=== PATIENT | female | born 1980 | race Caucasian/White ===

== ENCOUNTER → 2019-12-30 09:52 | Outpatient (CLI) | payer OTHER, SELFPAY ==
--- NOTE | ~2019-12-30 | US_ITS ---
EXAMINATION: US OB limited DATE: 12/30/2019 10:15 INDICATION: Subchorionic hematoma TECHNIQUE: Real-time ultrasound of the pelvis was performed. The interpreting radiologist was not pre sent for the study. COMPARISON: None. FINDINGS: There is a single living fetus in vertex presentation. The placenta is anterior and 3.9 cm from the internal cervical os. There is a 1.2 x 0.6 x 1.3 cm hypoechoic area of the anterior/superior aspect of the placenta. cardiac activity and movement are noted. heart rate is 149 beats per minute (bpm). The amniotic fluid index is subjectively normal. IMPRESSION: 1. Single living fetus in vertex presentation. 2. Small hypoechoic area of the placenta of unclear significance, possibly venous house versus small s ubchorionic hematoma Reviewed, dictated and finalized at location A. IMPRESSION: 1. Single living fetus in vertex presentation. 2. Small hypoechoic area of the placenta of unclear significance, possibly veno us house versus small subchorionic hematoma
== END ==
PROVIDERS: Visit Provider Obstetrics & Gynecology Gynecology
DX: O36.8920 Maternal care for other specified fetal problems, second trimester, not applicable or unspecified (principal); Z3A.00 Weeks of gestation of pregnancy not specified
CPT/HCPCS: 76815

== ENCOUNTER → 2020-01-13 09:53 | Outpatient (CLI) | payer OTHER, SELFPAY ==
--- NOTE | ~2020-01-13 | US_ITS ---
EXAMINATION: US OB /maternal detail DATE: 01/13/2020 10:50 INDICATION: anatomic survey. TECHNIQUE: Real-time ultrasound of the pelvis was performed. COMPARISON: Ultrasound 12/30/2019 FINDINGS: There is a single living fetus in vertex presentation. The placenta is anterior, 4.5 cm from the cer vix. heart rate is 154 beats per minute (bpm). The amniotic fluid index is 13.0 cm, which is no rmal. The following biometric data were obtained: Biparietal diameter (BPD): 4.4 cm; head circumference (HC): 15.9 cm; abdominal circumference (AC): 13 .2 cm; femur length (FL): 2.8 cm. These measurements are concordant. Estimated weight is 251 g +/- 38 g, which correlates with 21st percentile when 06/09/20 is used as estimated date of delivery. As single measurements, these parameters are each equal to the following estimated gestational ages w ith ranges of +/- 2 standard deviations: BPD: 19 weeks 3 days (17 weeks 4 days - 21 weeks 1 days). HC: 18 weeks 5 days (17 weeks 2 days - 20 weeks 1 days). AC: 18 weeks 5 days (16 weeks 5 days - 20 weeks 5 days). FL: 18 weeks 4 days (16 weeks 5 days - 20 weeks 2 days). estimated gestational age based solely on measurements from this exam is 18 weeks 6 days +/- 1 weeks 2 days. IMPRESSION: 1. Single living fetus in vertex presentation. 2. Estimated weight is 251 g +/- 38 g, which correlates with 21st percentile when 06/09/20 is u sed as estimated date of delivery. 3. Normal anatomic survey. Reviewed, dictated and finalized at location A. IMPRESSION: 1. Single living fetus in vertex presentation. 2. Estimated weight is 251 g +/- 38 g, which correlates with 21st percen tile when 06/09/20 is used as estimated date of delivery. 3. Normal anatomic survey.
== END ==
PROVIDERS: Visit Provider Obstetrics & Gynecology Gynecology
DX: O36.8920 Maternal care for other specified fetal problems, second trimester, not applicable or unspecified (principal); Z3A.18 18 weeks gestation of pregnancy
CPT/HCPCS: 76805

== ENCOUNTER 2020-05-28 13:23 | Observation (INO) | payer OTHER, SELFPAY ==
--- NOTE | ~2020-05-28 | US_ITS ---
EXAMINATION: US OB limited w BPP DATE: 05/28/2020 15:42 INDICATION: Biophysical profile and placenta check. Third trimester. TECHNIQUE: Real-time pelvic ultrasound was performed. COMPARISON: Ultrasound 01/13/2020, 12/30/2019 FINDINGS: There is a single living fetus in vertex presentation. The placenta is anterior. heart rate is 125 beats per minute (bpm). Biophysical profile performed by the technologist: breathing (30 sec sustained breathing in 30 minutes): 2 out of 2 movement (3 gross body movements in 30 minutes): 2 out of 2 tone (one episode of cncdtvm-ylirmmako-dafhjlc limb movement): 2 out of 2 Amniotic fluid pocket (2 cm): 2 out of 2 Total score: 8 out of 8 IMPRESSION: 1. Single living fetus in vertex presentation. 2. Biophysical profile 8 out of 8. Reviewed, dictated and finalized at location B.
--- NOTE | 2020-05-28 13:23 | OBADM ---
This patient, Lidia Hurley, admitted to the OB room OB Post 113 for observation. Patient/family oriented to hospital policies and general routines including ID bracelet, bed and alarms, visiting hours, pain management, procedures, bathroom and other care routines, personal items, smoking policy, room service/diet, and visiting hours. Patient/Family are encouraged to report perceived risks to care and to ask questions if they do not understand what they are told or what they should do.
[2020-05-28 13:42] VITALS: BP 114/69; PULSE 79
[2020-05-28 14:00] VITALS: BMI 29.5
[2020-05-28 14:01] VITALS: BP 101/61; PULSE 69
[2020-05-28 14:31] VITALS: BP 100/62; PULSE 67
[2020-05-28 14:45] VITALS: TEMP 36.6
[2020-05-28 15:00] VITALS: BP 101/61; PULSE 67
--- NOTE | 2020-05-28 15:00 | PCDIET ---
pt off unit for ultrasound.
--- NOTE | 2020-05-30 07:06 | PM.OBTRLD ---
OB - Triage/Final Diagnosis Final Diagnosis (1) Fall: Code(s): W19.XXXA - Unspecified fall, initial encounter Status: Acute
== END 2020-05-28 16:12 | disposition home or self-care (01) ==
PROVIDERS: Admitting Provider Obstetrics & Gynecology Gynecology; PCP Family Medicine; Visit Provider Obstetrics & Gynecology Gynecology
DX: O99.89 Other specified diseases and conditions complicating pregnancy, childbirth and the puerperium (principal); W19.XXXA Unspecified fall, initial encounter; Z3A.38 38 weeks gestation of pregnancy
CPT/HCPCS: 59025; 76815; 76819; G0378; G0379

== ENCOUNTER 2020-06-13 05:03 | Inpatient (IN) | payer OTHER, SELFPAY ==
[2020-06-13] VITALS (124 sets, daily range): BP systolic 88–141; BP diastolic 44–111; PULSE 42–103; RESP 16; TEMP 36.5–37.7; O2SAT 97–100; BMI 24.5
--- NOTE | 2020-06-13 05:28 | LDADM ---
This patient, Lidia Hurley, was admitted to Labor/Delivery/Recovery 104 on 06/13/20 at 05:03. Plans for labor, pain management and were discussed with patient. Patient/family oriented to hospital policies and general routines including ID bracelet, bed and alarms, visiting hours, pain management, procedures, bathroom and other care routines, personal items, smoking policy, room service/diet and guest tray routines, infant security routines, and visiting hours. Patient/Family are encouraged to report perceived risks to care and to ask questions if they do not understand what they are told or what they should do. See OBIX for further documentation.
[2020-06-13] MEDS: LACTATED RINGERS 1,000 ML 125 ML IV CONT ×3 (05:34→11:19)
[2020-06-13] MEDS: OXYTOCIN 30 UNITS/NS 500 ML 30 UNITS/500 ML BAG IV CONT (05:35)
[2020-06-13 05:42] LABS: Basophils Percent Auto 0.3 % (0.2-1.2); Eosinophils Absolute Auto 0.1 K/mm3 (0-0.3); Eosinophils Percent Auto 1.1 % (0-4.4); Hematocrit 38.6 % (37.0-47.0); Hemoglobin 13.2 g/dL (12.0-15.0); Immature Granulocyte Absolute 0.16 K/mm3 (0.00-0.031); Immature Granulocyte Percent A 1.3 % (0-0.5); Mean Corpuscular HGB Conc 34.2 g/dl (32-36); Mean Corpuscular Hemoglobin 31.4 pg (26-34); Mean Corpuscular Volume 91.9 fl (80-100); Mean Platelet Volume 9.2 fl (7.4-10.4); Monocytes Absolute Auto 0.8 K/mm3 (0.1-0.6); Monocytes Percent Auto 6.8 % (2.6-8.5); Neutrophils Absolute Auto 8.8 K/mm3 (1.3-6.7); Neutrophils Percent Auto 72.5 % (45.5-73.1); Platelet Count Result 279 k/mm3 (150-375); White Blood Count 12.2 K/mm3 (4.5-10.0)
--- NOTE | 2020-06-13 07:36 | WPDANESEPP ---
Anes - Eval Pre Procedure Procedure: labor epidural Date/Time: 06/13/20 07:36 Surgeon: jaclyn Pre Op Diagnosis: IOL Patient Data Age: 39 Gender: F Height: 1.63 m Weight: 65 kg Last Vital Signs Pulse 74 06/13/20 07:31 BP 106/62 06/13/20 07:31 Allergies Allergy/AdvReac Type Severity Reaction Status Date / Time No Known Allergies Allergy Unknown Verified 05/14/20 12:46 Home Medications Medication Instructions Recorded Confirmed Type One Daily Women's 1 tablet PO 05/14/20 History aspirin [Aspirin Low Dose] 81 mg PO DAILY 05/14/20 05/14/20 History cholecalciferol (vitamin D3) 50 mcg PO DAILY 05/14/20 05/14/20 History [Vitamin D3] omega 8-ldn-mpw-fish oil [Fish Oil] 2 cap PO DAILY 05/14/20 05/14/20 History Laboratory Tests 06/13/20 06/13/20 05:31 05:31 WBC 12.2 K/mm3 H K/mm3 (4.5-10.0) RBC 4.20 M/mm3 M/mm3 (4.2-5.4) Hgb 13.2 g/dL g/dL (12.0-15.0) Hct 38.6 % % (37.0-47.0) MCV 91.9 fl fl (80-100) MCH 31.4 pg pg (26-34) MCHC 34.2 g/dl g/dl (32-36) RDW 13.0 % % (11.5-14.5) Plt Count 279 k/mm3 k/mm3 (150-375) MPV 9.2 fl fl (7.4-10.4) Immature Gran % (Auto) 1.3 % H % (0-0.5) Neut % (Auto) 72.5 % % (45.5-73.1) Lymph % (Auto) 18.0 % L % (18.3-44.2) [place] % (Auto) 6.8 % % (2.6-8.5) Eos % (Auto) 1.1 % % (0-4.4) Baso % (Auto) 0.3 % % (0.2-1.2) Lymph # (Auto) 2.20 K/mm3 K/mm3 (0.9-3.2) [place] # (Auto) 0.8 K/mm3 H K/mm3 (0.1-0.6) Eos # (Auto) 0.1 K/mm3 K/mm3 (0-0.3) Baso # (Auto) 0.0 K/mm3 K/mm3 (0.0-0.1) Abs Immat Gran (auto) 0.16 K/mm3 H K/mm3 (0.00-0.031) Absolute Neuts (auto) 8.8 K/mm3 H K/mm3 (1.3-6.7) Absolute Nucleated RBC 0.0 K/mm3 K/mm3 (0.0-0.012) Nucleated RBC % 0.0 % % (0.0-0.2) RPR Pending Patient hx anesthesia problems: none Family hx anesthesia problems: none PMFSH Family History Family History Mother Glaucoma Father Factor VIII deficiency Chronic obstructive pulmonary disease Hypertension Dementia Social History Social History Smoking status: Never smoker Second hand tobacco smoke exposure: No Alcohol intake: current Substance use: never Spiritual care concerns: No Exam Day of Procedure 06/13/20 07:36 Patient weight: normal Heart: regular rate and rhythm Lungs: clear to auscultation Airway: Mallampati scale class II Neurological: alert and oriented
[2020-06-13] MEDS: SODIUM CHLORIDE 0.9% IV 300 ML 600 ML I-UTERINE (09:33)
[2020-06-13] MEDS: SODIUM CHLORIDE 0.9% IV 1,000 ML 150 ML I-UTERINE (10:04)
--- NOTE | 2020-06-13 13:25 | WPDOBADMIT ---
Obstetrics - Admit Note Admission Note: record reviewed. No pertinent additions to the history and/or any subsequent changes in the physical findings that are not consistent with the expected course of the were found. Additions to the history and/or subsequent changes in the physical findings follow. None.Here for MIL. cervix 250/-2 AROM with clear fluid. FHTs reactive seen at 0800.
--- NOTE | 2020-06-13 19:04 | PM.OBPRVD ---
OB - Delivery Note Procedure Delivery date: 06/13/20 Procedure: events: Labor Induction Intrapartal events: None Induction method: AROM and per pitocin protocol Delivery monitor: external FHT and internal uterine Route of delivery: Episiotomy description: Midline Laceration description: Perineal - 2nd Degree (and 2nd degree right periurethral lac) Delivery repair: vicryl (3-0 vicryl and 4-0 vicryl) Specimen: No Estimated blood loss (mL): 537 Anesthesia type: Epidural Disposition: PACU Baby Date of : 06/13/20 Weeks of gestation at delivery: 40 Infant gender: Female Weight (pounds): 6 Weight (ounces): 6 presentation: vertex Placenta delivery description: Spontaneous cord vessel description: 3 Vessels, Nuchal Cord, Tight and Around Extremity x1 score one minute: 9 score five minutes: 9
--- NOTE | 2020-06-13 19:06 | PM.OBDSVD ---
DS: Admitting Diagnosis Admitting Diagnosis Admitting Diagnosis: IOL 40 wk DS: Discharge Diagnosis Discharge Diagnosis (1) 40 weeks gestation of : Code(s): Z3A.40 - 40 weeks gestation of Status: Acute (2) (normal spontaneous vaginal delivery): Code(s): O80 - Encounter for full-term uncomplicated delivery Status: Acute (3) Encounter for sterilization: Code(s): Z30.2 - Encounter for sterilization Status: Acute OB - DS: Summary OB Procedures : Ultrasound OB Procedures Intrapartum: Spontaneous Vag Delivery OB Procedures: : P.P. tubal ligation Peripartum Data Infant Delivery Method: Natural Vaginal Laceration description: Perineal - 2nd Degree (and 2nd degree periurethral) complications: none Status at Discharge Functional status at discharge: independent ambulation Overall status at discharge: patient is progressing back to baseline Time Spent with Patient Time attestation: Total time spent providing and/or coordinating discharge services: DS: Data Data Completed and Pending Labs on day of discharge: Labs from last 24 hours 06/13/20 06/13/20 06/13/20 05:31 05:31 05:31 WBC 12.2 H RBC 4.20 Hgb 13.2 Hct 38.6 MCV 91.9 MCH 31.4 MCHC 34.2 RDW 13.0 Plt Count 279 MPV 9.2 Immature Gran % (Auto) 1.3 H Neut % (Auto) 72.5 Lymph % (Auto) 18.0 L Ross % (Auto) 6.8 Eos % (Auto) 1.1 Baso % (Auto) 0.3 Lymph # (Auto) 2.20 Ross # (Auto) 0.8 H Eos # (Auto) 0.1 Baso # (Auto) 0.0 Abs Immat Gran (auto) 0.16 H Absolute Neuts (auto) 8.8 H Absolute Nucleated RBC 0.0 Nucleated RBC % 0.0 RPR Pending Blood Type O Positive Antibody Screen Negative Discharge Plan Discharge Attending physician on discharge: Diya Valerio Discharging Clinician: Chris Conde Anticipated Discharge Date/Time: 06/15/20 19:08 Patient Disposition: Home, Self-Care Activity: may shower and pelvic rest Diet: regular Discharge Instructions: Education: Mom and Baby Guide Given to: Mother Follow-Up: Call your delivering provider's office for an appointment to be seen in: 6 Weeks Mom and baby should come to the [facility] for the follow-up appointment. Appointment Date/Time: June 17, 2020 at 10:00 am What to expect at your follow-up visit: Blood Pressure Check Physical Assessment Call [phone] if you are unable to keep your appointment time. BREAST CARE: * Wear a snug supportive bra. * For engorgement discomfort: Breast Feeding: * Apply warm moist washcloths * Express milk as needed to relieve engorgement * Wear loose clothing Bottle Feeding: * May apply ice packs * For sore nipples: * Identify correct latch-on * Apply warm moist washcloths before and after nursing * Air dry nipples after nursing * May apply Lansinoh cream to nipples EPISIOTOMY/PERINEAL CARE: * Until bleeding stops, use your mehnaz bottle after urinating * Change your pad frequently throughout the day * You may take sitz baths several times a day (fill your bathtub with warm water and soak for 20 minutes.) Do NOT bathe in the water ACTIVITY: * Rest as much as possible. * Do not exercise or lift anything heavier than your baby (such as laundry or other children.) * Avoid stairs or driving as much as possible. * Do not put anything into the vagina. No douching, tampons, or sexual activity until seen by physician. NOTIFY PHYSICIAN IF YOU HAVE ANY QUESTIONS OR IF ANY OF THE FOLLOWING SYMPTOMS OCCUR: * If your episiotomy becomes red, swollen, or more painful than what you have experienced in the hospital. * If your vaginal bleeding becomes foul smelling. * If your vaginal bleeding becomes more heavy than a period or if your bleeding changes from pink to bright red. H
[2020-06-13] MEDS: OXYTOCIN 30 UNITS/NS 500 ML 30 UNITS/500 ML BAG 125 UNITS IV CONT (19:14)
[2020-06-13] MEDS: BENZOCAINE 20% AER SPR (*SP) 56 GM CAN 1 SPRAY TOPICAL (21:08)
[2020-06-13] MEDS: WITCH HAZEL 40 PADS 1 PAD TOPICAL (21:08)
[2020-06-13] MEDS: IBUPROFEN 600 MG TABLET PO (21:42)
[2020-06-13] MEDS: ACETAMINOPHEN 325 MG TABLET 650 MG PO (21:42)
[2020-06-14] VITALS (11 sets, daily range): BP systolic 102–130; BP diastolic 53–96; PULSE 63–110; RESP 12–20; TEMP 36.7–37.6; O2SAT 96–100
[2020-06-14 04:56] LABS: Hemoglobin 10.8 g/dL (12.0-15.0)
--- NOTE | 2020-06-14 08:00 | PC.NURSE ---
Consulted with patient, Mother reports she was unable to latch without assist. Reviewed infant feeding cues, frequencies, duration of feedings, feeding elimination flow sheet, and signs of adequate intake. Demonstrated stimulation techniques to wake infant for feeding. Assisted with infant to breast. Reviewed positioning/alignment in cross cradle, holding breast in U hold and guided asymmetrical latch on. Discussed rational for each. Infant was able to latch correctly. Infant nursed eagerly, with steady draws and occasional swallowing noted. Reviewed signs of a correct latch, effective nursing and suck swallow ratio. Infant was able to maintain latch without discomfort to mother. Nipple care reviewed. Advised to stimulate while feeding to keep awake and nursing effectively for increased intake and to assist with maintaining deep latch. Instructed mother to call out for RN assistance if she is unable to latch infant for feeding or she has discomfort with nursing. Instructed feeding should be initiated three hours from start of last feeding or if feeding cues are noted before. Mother voiced understanding of information shared.
[2020-06-14 10:00] LABS: Rapid Plasma Reagin Non-Reactive (NonReactive)
--- NOTE | 2020-06-14 10:07 | WPDANLDPN2 ---
Anes-Prog Note L&D Date/Time: 06/14/20 10:07 Comfortable throughout: labor and delivery Neuraxial method: epidural Epidural/Spinal procedure site: clean & non-tender Neuro status: Neuro function grossly intact. Cardiovascular status: normal Respiratory status: normal Airway patency: baseline Mental status: baseline Post-Op hydration status: normal Vital Signs: Last Vital Signs Temp 37.6 C 06/14/20 07:45 Pulse 63 06/14/20 07:45 Resp 16 06/14/20 07:45 BP 102/59 L 06/14/20 07:45 Pulse Ox 98 06/14/20 07:45 I/O: Intake & Output 06/13/20 06/14/20 06/14/20 23:59 07:59 15:59 Intake Total 1500 Output Total 652 Balance 848 Post-procedural complaints: none Patient feedback: Patient satisfied with anesthetic care.
[2020-06-14] MEDS: LACTATED RINGERS 1,000 ML 30 ML IV CONT (11:35)
--- NOTE | 2020-06-14 12:02 | PC.NURSE ---
To OR per stretcher, IV in LFA and epidural in place. Report given to pre-op.
--- NOTE | 2020-06-14 12:15 | WPDANESEFPP ---
Anes - Eval Final PreProcedure Day of Procedure 06/14/20 12:15 Patient weight: normal Heart: regular rate and rhythm Lungs: clear to auscultation Airway: Mallampati scale class II Neurological: alert and oriented Last oral intake: >/= 8 hours ASA classification: II Emergent: no Anesthetic plan: proceed Anesthesia type and monitoring: regional epidural and standard monitoring Other findings: existing epid vs gen Informed Consent: The patient's anesthetic plan and its attendant risks and benefits were discussed with the patient/family/POA. Questions were solicited and answers provided to the satisfaction of the patient/family/POA.
--- NOTE | 2020-06-14 12:15 | PM.IMHP ---
H&P: HPI History of Present Illness Date/Time: 06/14/20 12:15 Chief complaint: IOL Narrative: Lidia Hurley is a 39 year old female now on ppd1 requesting sterilization. Patient has determined she wants no further children. She is aware this is a permanent and irreversible sterilizing procedure. Risks of infection, bleeding, injury to internal organs, and failure (with increased ectopic) were reviewed. Agrees to proceed. [facility] Past Medical History Medical History (Updated 06/14/20 @ 12:18 by Diya Valerio MD) Glaucoma Surgical History Surgical History (Updated 06/14/20 @ 12:17 by Diya Valerio MD) S/P laparoscopic cholecystectomy Family History Family History Mother Glaucoma Father Factor VIII deficiency Chronic obstructive pulmonary disease Hypertension Dementia Social History Social History Smoking status: Never smoker Second hand tobacco smoke exposure: No Alcohol intake: current Substance use: never Spiritual care concerns: No Meds Home Medications and Allergies Home Medications Medication Instructions Recorded Confirmed Type One Daily Women's 1 tablet PO DAILY 05/14/20 06/13/20 History aspirin [Aspirin Low Dose] 81 mg PO DAILY 05/14/20 05/14/20 History cholecalciferol (vitamin D3) 50 mcg PO DAILY 05/14/20 05/14/20 History [Vitamin D3] omega 4-qma-icg-fish oil [Fish Oil] 2 cap PO DAILY 05/14/20 05/14/20 History Allergies Allergy/AdvReac Type Severity Reaction Status Date / Time No Known Allergies Allergy Unknown Verified 05/14/20 12:46 Vital Signs Vital Signs - 24 hr 06/13/20 12:16 06/13/20 12:17 06/13/20 12:21 Temperature Pulse Rate 58 L 52 L Respiratory Rate Blood Pressure 95/55 L 97/51 L Pulse Oximetry 98 06/13/20 12:22 06/13/20 12:26 06/13/20 12:27 Temperature Pulse Rate 63 Respiratory Rate Blood Pressure 96/51 L Pulse Oximetry 98 99 06/13/20 12:31 06/13/20 12:32 06/13/20 12:37 Temperature Pulse Rate 67 Respiratory Rate Blood Pressure 102/51 L Pulse Oximetry 99 98 06/13/20 12:42 06/13/20 12:46 06/13/20 12:47 Temperature Pulse Rate 61 Respiratory Rate Blood Pressure 100/52 L Pulse Oximetry 99 99 06/13/20 12:52 06/13/20 12:57 06/13/20 13:01 Temperature Pulse Rate 79 Respiratory Rate Blood Pressure 106/58 L Pulse Oximetry 100 99 06/13/20 13:02 06/13/20 13:07 06/13/20 13:12 Temperature Pulse Rate Respiratory Rate Blood Pressure Pulse Oximetry 98 99 98 06/13/20 13:15 06/13/20 13:17 06/13/20 13:22 Temperature 98.3 F Pulse Rate 51 L Respiratory Rate Blood Pressure 93/53 L Pulse Oximetry 99 98 06/13/20 13:27 06/13/20 13:31 06/13/20 13:32 Temperature Pulse Rate 50 L Respiratory Rate Blood Pressure 93/50 L Pulse Oximetry 98 98 06/13/20 13:37 06/13/20 13:42 06/13/20 13:46 Temperature Pulse Rate 49 L Respiratory Rate Blood Pressure 94/51 L Pulse Oximetry 98 97 06/13/20 13:47 06/13/20 13:52 06/13/20 13:57 Temperature Pulse Rate Respiratory Rate Blood Pressure Pulse Oximetry 98 97 97 06/13/20 14:01 06/13/20 14:02 06/13/20 14:07 Temperature Pulse Rate 49 L Respiratory Rate Blood Pressure 100/60 Pulse Oximetry 97 97 06/13/20 14:12 06/13/20 14:16 06/13/20 14:31 Temperature Pulse Rate 65 53 L Respiratory Rate Blood Pressure 96/67 L 105/56 L Pulse Oximetry 97 06/13/20 14:46 06/13/20 15:01 06/13/20 15:16 Temperature Pulse Rate 63 54 L 67 Respiratory Rate Blood Pressure 97/58 L 98/56 L 103/58 L Pulse Oximetry 06/13/20 15:31 06/13/20 15:35 06/13/20 15:47 Temperature 98.4 F Pulse Rate 57 L 87 Respiratory Rate Blood Pressure 100/62 116/72 Pulse Oximetry 06/13/20 16:01 06/13/20
--- NOTE | 2020-06-14 13:21 | P.OP_ITS ---
Procedure Note - Detailed Date of procedure: 06/14/20 Pre-op diagnosis: IOL encounter for sterilization Post-op diagnosis: same Procedure performed: pp BTL Description of procedure: The patient was taking to the operating room and placed under epidural anesthesia. The anesthesia was deemed inadequate. The patient was placed under general anesthesia with an ET tube. A vertical skin incision was made below the umbilicus and carried down to the underlying layer of fascia. The fascia was grasped with Citrine Informaticssner times and entered with Pryor scissors. The incision was extended with Pryor scissors superiorly and inferi rashmi. The peritoneum was entered with a peon. The bowel was packed away using a moist laparotomy sponge. The left tube was grasped with a Alena and pulled through to its fimbriated end. The tube was cross clamped with a Z clamp, transected, and suture ligated with 0 Vicryl. The identical procedure was performed on the right side. Hemostasis was good at both tubal sites. The sponges are removed with the fascia is closed using 0 Vicryl in a running fashion. Skin is closed using 4 0 Vicryl in a subcuticular fashion and Dermaflex was placed over the incision. Anesthesia: GETA and epidural (failed) Surgeon: Diya Valerio MD Estimated blood loss (mL): 5 Drains: No Packing: No Pathology: yes (bilateral tubes) Complications: No immediate complications Condition: stable Disposition: PACU Findings: normal appearing tubes and ovaries
--- NOTE | 2020-06-14 14:50 | PC.NURSE ---
Patient returned to floor from PACU per stretcher.
[2020-06-14] MEDS: IBUPROFEN 600 MG TABLET PO (16:05)
[2020-06-15] MEDS: IBUPROFEN 600 MG TABLET PO (04:45)
--- NOTE | 2020-06-15 07:52 | WPDANESPN ---
Anes - Prog Note Post-Op Date/Time: 06/15/20 07:52 Cardiovascular status: normal Respiratory status: normal Airway patency: baseline Mental status: baseline Post-Op hydration status: normal Vital Signs: Last Vital Signs Temp 36.9 C 06/14/20 20:00 Pulse 66 06/14/20 20:00 Resp 16 06/14/20 20:00 BP 103/53 L 06/14/20 20:00 Pulse Ox 97 06/14/20 20:00 I/O: Intake & Output 06/14/20 06/14/20 06/15/20 15:59 23:59 07:59 Intake Total 200 240 Balance 200 240 Laboratory Tests 06/14/20 04:29 06/13/20 05:31 RPR Non-reactive Post-procedural complaints: none Patient Feedback: Patient satisfied with anesthetic care.
[2020-06-15 08:00] VITALS: BP 120/66; PULSE 78; RESP 18; TEMP 36.6
[2020-06-15] MEDS: MULTIVIT/MIN/PREN/FOL AC/IRON TABLET 1 TAB PO (08:22)
[2020-06-15] MEDS: BENZOCAINE 20% AER SPR (*SP) 56 GM CAN 1 SPRAY TOPICAL (08:22)
[2020-06-15] MEDS: DOCUSATE SODIUM 100 MG CAPSULE PO (08:22)
[2020-06-15] MEDS: WITCH HAZEL 40 PADS 1 PAD TOPICAL (08:22)
--- NOTE | 2020-06-15 11:37 | PM.OBPNVD ---
OB - PN: Subj Subjective Date/time seen: 06/15/20 11:37 doing okay no complaints today pain control incision okay OB - PN: Obj Data Labs CBC & Chem 7: 06/14/20 04:29 OB - PN A/P Assessment and Plan (1) (normal spontaneous vaginal delivery): Code(s): O80 - Encounter for full-term uncomplicated delivery Status: Acute Assessment and Plan: d/c home f/u in 6 weeks (2) Encounter for sterilization: Code(s): Z30.2 - Encounter for sterilization Status: Acute Time Spent With Patient Time: Total time spent is greater than 50% in coordination of care (as documented) at patient's floor/unit and/or counseling patient: Exam GI: Inspection: incision
--- NOTE | 2020-06-15 15:21 | PC.NURSE ---
Self care and infant care discharge instructions given including follow up visit date and time. Very pleasant and cooperative. Voiced all understanding including feeding plan for . FOB at side.
[2020-06-17 09:50] VITALS: BP 115/68; PULSE 64; RESP 16; TEMP 37.3; O2SAT 98
== END 2020-06-15 17:45 | disposition home or self-care (01) | DRG 798 ==
LOC: ANHLDR 19:08 → ANHOB2 06-14 06:08 → ANHLDR 06-18 11:05 → ANHOB2 06-18 11:05
PROVIDERS: Admitting Provider Obstetrics & Gynecology Gynecology; PCP Family Medicine; Visit Provider Obstetrics & Gynecology
PROC: 0UB70ZZ Excision of Bilateral Fallopian Tubes, Open Approach (ICD-10-PCS; CPT 58605; principal; 2020-06-14 12:30)
DX: O69.2XX0 Labor and delivery complicated by other cord entanglement, with compression, not applicable or unspecified (principal); Z37.0 Single live birth; Z3A.40 40 weeks gestation of pregnancy; O36.8330 Maternal care for abnormalities of the fetal heart rate or rhythm, third trimester, not applicable or unspecified; Z30.2 Encounter for sterilization; O99.89 Other specified diseases and conditions complicating pregnancy, childbirth and the puerperium; H40.89 Other specified glaucoma
CPT/HCPCS: 36415; 85014; 85018; 85025; 86592; 86850; 86900; 86901; 88302; A9270; J0330; J1100; J2250; J2370; J2405; J2590; J2704; J2795; J3010; J7030; J7120

== ENCOUNTER 2021-11-07 20:34 | Emergency (ER) | payer OTHER, SELFPAY ==
--- NOTE | ~2021-11-07 | XR_ITS ---
EXAMINATION: XR chest 1V portable INDICATION: Cough TECHNIQUE: Portable AP chest at 2154 hours COMPARISON: 04/28/2016 FINDINGS: The lungs are free of acute opacities. There is no pleural effusion or pneumothorax. The ca rdiomediastinal silhouette is normal. IMPRESSION: 1. No acute cardiopulmonary abnormality. Reviewed, dictated and finalized at location F. STRAIGHTENER
--- NOTE | ~2021-11-07 | CT_ITS ---
EXAMINATION: CT abdomen pelvis w con INDICATION: Upper abdominal pain TECHNIQUE: Computed tomographic images of the abdomen and pelvis were obtained after the administrati on of 100 cc of Omnipaque 350 intravenous contrast. The dose-length product (DLP) was 395.64 mGy-cm. Automated exposure control and iterative reconstruction technique were employed. COMPARISON: None available FINDINGS: Minimal dependent atelectasis is present in the lung bases. The heart size is normal. The g allbladder is surgically absent. There is mild enlargement of the common bile duct and central intrah epatic ducts which is likely due to post cholecystectomy state. The liver, spleen, pancreas, and adre nal glands are normal. The kidneys are unremarkable. No pathologically enlarged abdominal or pelvic l ymph nodes are identified. There is no free intraperitoneal gas or evidence of bowel obstruction. IMPRESSION: 1. No CT correlate for the patient's symptoms. Reviewed, dictated and finalized at location F. OR IN [employer]IE[employer] NEWSPAPER
[2021-11-07 20:38] VITALS: BP 125/67; PULSE 82; RESP 20; TEMP 36.5; O2SAT 100
--- NOTE | 2021-11-07 21:38 | PC.NURSE ---
Patient states she did test positive for covid.
--- NOTE | 2021-11-07 21:41 | ED.ABDPAIN ---
HPI - Abdominal Pain General Chief Complaint: Abdominal Pain Stated Complaint: abdominal pain, covid + family Time Seen by Provider: 11/07/21 21:32 Source: RN notes reviewed History of Present Illness HPI narrative: Patient presents emergency department from home for abdominal pain. Patient states pain began approximately 1 hour prior to arrival pain is located across the upper abdomen bilaterally described as cramping in nature patient states the pain lasted for approximately 45 minutes and resolved states she did not take any medication for the pain states the pain did not radiate. She denies any fevers or chills chest pain nausea vomiting diarrhea or any other symptoms. Patient states she did just test positive for COVID-19 as both her and daughter had tested positive earlier this week states has had a mild cough Related Data Home Medications Medication Instructions Recorded Confirmed One Daily Women's 1 tablet PO DAILY 05/14/20 06/13/20 cholecalciferol (vitamin D3) 50 mcg PO DAILY 05/14/20 05/14/20 [Vitamin D3] omega 6-jbz-yfs-fish oil [Fish Oil] 2 cap PO DAILY 05/14/20 05/14/20 Allergies Allergy/AdvReac Type Severity Reaction Status Date / Time No Known Allergies Allergy Unknown Verified 07/30/21 16:30 Review of Systems Review of Systems: Gen.: Denies fevers or chills ENT: Denies congestion Respiratory: Denies shortness of breath ports CV: Denies chest pain or palpitations GI: See HPI Musculoskeletal: Denies back pain or muscle pain Neuro: Denies numbness, tingling, weakness or focal weakness Skin: Denies rash Except as documented, all other systems reviewed and negative [facility] Past Medical History Medical History Encounter for immunization Glaucoma Surgical History Surgical History (Updated 06/14/20 @ 12:17 by Diya Valerio MD) S/P laparoscopic cholecystectomy Family History Family History Mother Glaucoma Father Factor VIII deficiency Chronic obstructive pulmonary disease Hypertension Dementia Social History Social History Smoking status: Never smoker Second hand tobacco smoke exposure: No Alcohol intake: current Substance use: never Spiritual care concerns: No Exam Narrative: APPEARANCE: No acute distress, nontoxic, resting in bed EYES: EOMI HEENT: Normocephalic, atraumatic, OMM RESPIRATORY: No respiratory distress Clear to auscultation bilaterally with no rhonchi wheezing or rales. CARDIOVASCULAR: Regular rate and rhythm without murmurs rubs or gallops. ABDOMINAL: Soft, nontender, nondistended, no rebound or guarding MUSCULOSKELETAl: Moves all extremities. No clubbing, cyanosis or edema. NEURO: Awake and alert. Following commands, speech normal, no focal deficits SKIN:: Warm, dry. No rashes lesions or abrasions PSYCHIATRIC: Normal affect/mood, Course Course Emergency Course: Patient is alert times can back elevated will obtain imaging at this time Called discussed Dr. Mendoza for Dr. Beyer agrees with plan for discharge we will have patient follow-up as outpatient for repeat liver enzymes once COVID-19 is resolved Patient continues to have no abdominal pain in the emergency department. Discussed with her liver enzymes and need for follow-up as an outpatient. Discussed with patient results of workup and diagnosis. Discussed need for follow-up with primary care, proper use of medication, and reasons to return to the emergency department. Patient understands and agrees to current treatment plan Vital Signs Vital signs: Vital Signs Temperature 97.7 F 11/07/21 20:38 Pulse Rate 82 11/07/21 20:38 Respiratory Rate 20 11/07/21 20:38 Blood Pressure 125/67 11/07/21 20:38 Pulse Oximetry 100 11/07/21 20:38 Temperature 97.7 F 11/07/21 20:38 Pulse Rate 82 11/07/21 20:38
[2021-11-07 21:45] LABS: Basophils Percent Auto 0.2 % (0.2-1.2); Eosinophils Percent Auto 0.6 % (0-4.4); Hematocrit 34.8 % (37.0-47.0); Hemoglobin 11.7 g/dL (12.0-15.0); Immature Granulocyte Absolute 0.04 K/mm3 (0.00-0.031); Immature Granulocyte Percent A 0.6 % (0-0.5); Lymphocytes Absolute Auto 0.99 K/mm3 (0.9-3.2); Lymphocytes Percent Auto 14.9 % (18.3-44.2); Mean Corpuscular HGB Conc 33.6 g/dl (32-36); Mean Corpuscular Volume 89.2 fl (80-100); Mean Platelet Volume 9.2 fl (7.4-10.4); Monocytes Absolute Auto 0.6 K/mm3 (0.1-0.6); Monocytes Percent Auto 9.4 % (2.6-8.5); Neutrophils Absolute Auto 4.9 K/mm3 (1.3-6.7); Neutrophils Percent Auto 74.3 % (45.5-73.1); Platelet Count Result 164 k/mm3 (150-375); White Blood Count 6.6 K/mm3 (4.5-10.0)
--- NOTE | 2021-11-07 21:54 | PC.NURSE ---
Patient attempted to provide a urine specimen, unsuccessfull.
[2021-11-07 21:55] LABS: Alanine Aminotransferase 107 U/L (4-35); Alkaline Phosphatase 103 U/L (38-126); Anion Gap 7 mmol/L (8-16); Aspartate Amino Transferase 239 U/L (14-36); Bilirubin,Total 0.6 mg/dL (0.2-1.3); Blood Urea Nitrogen 19 mg/dL (7-17); Calcium 8.8 mg/dL (8.4-10.2); Carbon Dioxide 24 mmol/L (22-30); Chloride 106 mmol/L (98-107); Estimated CRCL calculation 92 ml/min; Estimated Glomerular Filt Rate > 60; Glucose 110 mg/dL (65-110); Lipase 106 U/L (23-300); Potassium 3.5 mmol/L (3.4-5.0); Sodium 137 mmol/L (137-145)
--- NOTE | 2021-11-07 22:02 | PC.NURSE ---
Patient taken to CT via stretcher. Patient states she has had a tubal.
[2021-11-07 23:03] VITALS: BP 116/70; PULSE 77; RESP 17; TEMP 36.2; O2SAT 99
== END 2021-11-07 23:13 | disposition home or self-care (01) ==
PROVIDERS: Emergency Medicine; Emergency Provider Emergency Medicine; PCP Family Medicine
DX: U07.1 COVID-19 (principal); R10.12 Left upper quadrant pain; R10.31 Right lower quadrant pain; R74.01 Elevation of levels of liver transaminase levels; H40.9 Unspecified glaucoma
CPT/HCPCS: 36415; 71045; 74177; 80053; 83690; 85025; 99284; Q9967

== ENCOUNTER 2021-11-21 08:59 | Outpatient (CLI) | payer OTHER, SELFPAY ==
--- NOTE | ~2021-11-21 | US_ITS ---
US abdomen complete DATE: 11/21/2021 09:36 INDICATION: Abdominal pain TECHNIQUE: Real-time imaging and Doppler analysis of the abdominal contents COMPARISON: 11/07/2021 CT abdomen pelvis with IV contrast material FINDINGS: The gallbladder is surgically absent. No hepatic or pancreatic space-occupying mass lesion is evident. Normal hepatopedal portal venous meg w direction The common bile duct measures 4.7 mm, normal. Splenic size is within normal limits. The right kidney measures 9.8 cm length, left kidney 9.4 cm length. No renal mass lesion or hydroneph rosis is detected. Normal caliber of the abdominal aorta. The inferior vena cava is unremarkable. IMPRESSION: Status post cholecystectomy Reviewed, dictated and finalized at Location A. Reviewed, dictated and finalized at location B. IOVASCULAR DISEASE SPECIALIST IMPRESSION: Status post cholecystectomy
[2021-11-21 10:06] LABS: Alanine Aminotransferase 29 U/L (4-35); Albumin Level 4.7 g/dL (3.5-5.1); Alkaline Phosphatase 55 U/L (38-126); Aspartate Amino Transferase 30 U/L (14-36); Bilirubin,Total 0.5 mg/dL (0.2-1.3)
[2021-11-21 10:59] LABS: Hepatitis B Surface Antigen Negative (Negative)
[2021-11-21 11:05] LABS: HAV RESULT Negative (Negative); Hepatitis B Core IgM Result Negative (Negative)
[2021-11-21 11:16] LABS: Hepatitis C Virus Antibody Negative (Negative)
== END 2021-11-21 09:00 | disposition home or self-care (01) ==
PROVIDERS: PCP Family Medicine; Visit Provider Physician Assistant
DX: R79.89 Other specified abnormal findings of blood chemistry (principal)
CPT/HCPCS: 36415; 76700; 80074; 80076

== ENCOUNTER 2022-07-06 09:07 | Outpatient (CLI) | payer OTHER, SELFPAY | END 2022-07-06 09:08 | disposition home or self-care (01) | LOC: ANHAUDASC 09:08 | PROVIDERS: PCP Family Medicine; Visit Provider Otolaryngology | DX: H91.93 Unspecified hearing loss, bilateral (principal); H93.13 Tinnitus, bilateral | CPT/HCPCS: 92557; 92567 ==

== ENCOUNTER → 2023-01-01 12:40 | Outpatient (CLI) | payer OTHER, SELFPAY ==
--- NOTE | ~2023-01-01 | MM_ITS ---
EXAMINATION: MM screening [facility] BI w avery HISTORY: Screening mammogram. Baseline examination. TECHNIQUE: Craniocaudal and mediolateral oblique 3-D tomosynthesis images were obtained and synthetic 2-D images were generated. CAD analysis was submitted and interpreted. COMPARISON: No prior mammogram is available for comparison at this institution. BREAST PARENCHYMAL COMPOSITION: The breasts are heterogeneously dense, which may obscure small masses . FINDINGS: There is no evidence of suspicious mass, calcification, or architectural distortion to sugg est malignancy in either breast. There has been no suspicious interval change. IMPRESSION: 1. No mammographic evidence of malignancy. 2. Recommend routine screening mammography in one year. BI-RADS Category 1: Negative Reviewed, dictated and finalized at location A.
== END ==
PROVIDERS: PCP Family Medicine; Visit Provider Obstetrics & Gynecology Gynecology
DX: Z12.31 Encounter for screening mammogram for malignant neoplasm of breast (principal)
CPT/HCPCS: 77063; 77067

== ENCOUNTER 2023-02-14 10:08 | Emergency (ER) | payer OTHER, SELFPAY ==
--- NOTE | 2023-02-14 10:12 | ED.URI ---
HPI - URI/Sore Throat General Chief Complaint: Upper Respiratory Infection Stated Complaint: Sinus Time Seen by Provider: 02/14/23 10:12 Source: patient, RN notes reviewed and old records reviewed Mode of arrival: ambulatory Limitations: no limitations History of Present Illness HPI Narrative: 42-year-old female presents to the [facility] with 10 days of sinus congestion, sore throat. Has taken qvdx-mdb-fdprcgo treatments with some relief. Reports a fever of 102 yesterday. Reports taking home COVID test yesterday which she reports is negative Patient also reports that several days ago she was drinking coffee, the flavoring that she added had mold in it and was concerned Onset (ago): day(s) () Related Data Home Medications Medication Instructions Recorded Confirmed cholecalciferol (vitamin D3) 50 50 mcg PO DAILY 05/14/20 02/14/23 mcg (2,000 unit) capsule (Vitamin D3) multivit with minerals-iron 18 1 tablet PO DAILY 05/14/20 02/14/23 mg-folic ac 400 mcg-vit K 25 mcg tablet (One Daily Women's) omega 0-cip-wdq-fish oil 1,000 mg 2 cap PO DAILY 05/14/20 02/14/23 (120 mg-180 mg) capsule (Fish Oil) magnesium glycinate PO DAILY 05/07/22 12/07/22 Allergies Allergy/AdvReac Type Severity Reaction Status Date / Time No Known Allergies Allergy Unknown Verified 02/14/23 10:17 Review of Systems Review of Systems: All systems reviewed & are unremarkable except as noted in HPI and below Constitutional: Constitutional: Reports no additional constitutional complaints Eyes: Eyes: Reports no additional eye complaints ENT: Reports as per HPI, Reports sinus pain, Reports sinus pressure and Reports sore throat Cardiovascular: Cardiovascular: Reports no additional cardiovascular complaints, Denies chest pain and Denies dyspnea Respiratory: Respiratory: Reports no additional respiratory complaints, Denies chest congestion, Denies cough and Denies dyspnea Gastrointestinal: Gastrointestinal: Reports no additional gastrointestinal complaints, Denies abdominal pain, Denies nausea and Denies vomiting Musculoskeletal: Musculoskeletal: Reports no additional musculoskeletal complaints Integumentary/Breasts: Skin/Breast: Reports system reviewed and no additional complaints, except as docu Neurologic: Reports system reviewed and no additional complaints, except as documented Psychiatric: Psychiatric: Reports no additional psychiatric complaints Allergic/Immunologic: Allergic/Immunologic: Reports no additional allergic/immunologic complaints PMFSH Past Medical History Medical History Encounter for immunization Glaucoma Surgical History Surgical History S/P laparoscopic cholecystectomy Family History Family History Mother Glaucoma Father Factor VIII deficiency Chronic obstructive pulmonary disease Hypertension Dementia Social History Social History Smoking status: Never smoker Second hand tobacco smoke exposure: No Alcohol intake: current Substance use: never Substance use type: does not use Lack of Transportation: No Lack of Food: Never True Current Housing: I Have Housing Concerned About Future Housing: No Difficulty Paying Gas/Electric Bills: No Difficulty Paying for Meds: No Currently Unemployed: No Education: Bachelor's Degree Difficulty w/ Childcare or Family Care: No Living arrangements: with family Gender identity (if verbalized by the patient): Female Sexual Orientation (if Verbalized by the Patient): Straight or Heterosexual Spiritual care concerns: No Agree to blood products: Yes Comments At the time of my signature, I reviewed and agree with the nursing past medical, surgical, social, and family history. There is no relevant family history
[2023-02-14 10:21] VITALS: BP 155/81; PULSE 90; RESP 20; TEMP 36.2; O2SAT 100
== END 2023-02-14 10:30 | disposition home or self-care (01) ==
PROVIDERS: Emergency Provider Nurse Practitioner; PCP Family Medicine
DX: J01.90 Acute sinusitis, unspecified (principal); H40.9 Unspecified glaucoma
CPT/HCPCS: 99213; G0463

== ENCOUNTER 2024-02-24 10:25 | Outpatient (CLI) | payer OTHER, SELFPAY ==
--- NOTE | ~2024-02-24 | MM_ITS ---
EXAMINATION: MM screening [facility] BI w avery HISTORY: Screening mammogram TECHNIQUE: Craniocaudal and mediolateral oblique 3-D tomosynthesis images were obtained and synthetic 2-D images were generated. CAD analysis was submitted and interpreted. COMPARISON: 01/01/2023 bilateral screening mammogram BREAST PARENCHYMAL COMPOSITION: The breasts are heterogeneously dense, which may obscure small masses . FINDINGS: There is no evidence of suspicious mass, calcification, or architectural distortion to sugg est malignancy in either breast. There has been no suspicious interval change. IMPRESSION: 1. No mammographic evidence of malignancy. 2. Recommend routine screening mammography in one year. BI-RADS Category 1: Negative Reviewed, dictated and finalized at location B.
== END 2024-02-24 10:26 ==
LOC: MICIMG 10:28
PROVIDERS: PCP Family Medicine; Visit Provider Nurse Practitioner
DX: Z12.31 Encounter for screening mammogram for malignant neoplasm of breast (principal)
CPT/HCPCS: 77063; 77067

== ENCOUNTER 2025-07-04 10:30 | Outpatient (CLI) | payer OTHER, SELFPAY ==
--- NOTE | ~2025-07-04 | MM_ITS ---
EXAMINATION: MM screening [facility] BI w avery HISTORY: Screening TECHNIQUE: Craniocaudal and mediolateral oblique 3-D tomosynthesis images were obtained and synthetic 2-D images were generated. CAD analysis was submitted and interpreted. COMPARISON: 01/01/2023 BREAST PARENCHYMAL COMPOSITION: The breasts are heterogeneously dense, which may obscure small masses. FINDINGS: There is no evidence of suspicious mass, calcification, or architectural distortion to suggest malignancy. Focal asymmetry in the upper outer quadrant of the left breast, anterior to middle depth. IMPRESSION: 1. Focal asymmetry in the upper-outer quadrant of the left breast, anterior to middle depth. The study is incomplete. A diagnostic mammogram and a diagnostic ultrasound are recommended. 2. No mammographic evidence for metastases in the right breast. BI-RADS 0: Incomplete-Need additional imaging evaluation. Reviewed, dictated and finalized at location Q.
== END 2025-07-04 10:31 | disposition home or self-care (01) ==
LOC: MICIMG 10:31
PROVIDERS: PCP Obstetrics & Gynecology Gynecology; Visit Provider Obstetrics & Gynecology Gynecology
DX: Z12.31 Encounter for screening mammogram for malignant neoplasm of breast (principal); R92.8 Other abnormal and inconclusive findings on diagnostic imaging of breast
CPT/HCPCS: 77063; 77067

== ENCOUNTER 2025-08-13 08:01 | Outpatient (CLI) | payer OTHER, SELFPAY ==
--- NOTE | ~2025-08-13 | MMUS_ITS ---
EXAMINATION: MM diagnostic [facility] LT w avery, US breast LT complete HISTORY: Follow-up left breast asymmetry TECHNIQUE: Additional 3-D tomosynthesis images of the left breast were performed and synthetic 2-D images were generated. CAD analysis was submitted and interpreted. High resolution complete left breast ultrasound was performed. COMPARISON: Comparison to multiple prior studies sequentially, with oldest reviewed study dated Comparison to multiple prior studies sequentially, with oldest reviewed study dated 01/01/2023. . BREAST PARENCHYMAL COMPOSITION: Dense: The breasts are heterogeneously dense, which may obscure small masses FINDINGS: MAMMOGRAPHIC FINDINGS: There are no suspicious masses, calcifications or architectural distortion in the left breast to suggest malignancy. ULTRASOUND: Complete US of all 4 quadrants of the left breast/s and retroareolar region was reviewed. At 3:00, 6 cm from the nipple there is an oval circumscribed hypoechoic mass with parallel orientation measuring 11 x 4 x 9 mm with horizontal striations, most likely benign lipoma. IMPRESSION: 1. Probable benign lipoma of the left breast measuring 11 mm at 3:00, 6 cm from the nipple. 2. Recommend 6 month follow-up Limited left breast ultrasound BI-RADS category 3, probably benign findings. Reviewed, dictated and finalized at location B. IMPRESSION: 1. Probable benign lipoma of the left breast measuring 11 mm at 3:00, 6 cm from the nipple. 2. Recommend 6 month follow-up Limited left breast ultrasound BI-RADS category 3, probably benign findings.
== END 2025-08-13 08:02 | disposition home or self-care (01) ==
LOC: MICIMG 08:02
PROVIDERS: PCP Obstetrics & Gynecology Gynecology; Visit Provider Obstetrics & Gynecology Gynecology
DX: R92.8 Other abnormal and inconclusive findings on diagnostic imaging of breast (principal)
CPT/HCPCS: 76641; 77061; 77065; G0279